=== PATIENT | male | born 1980 | race African-American/Black ===

== ENCOUNTER 2016-11-07 02:20 | Inpatient (IN) | payer SELFPAY ==
[~2016-11-07] VITALS: Ht 172.7 cm; Wt 63.9 kg
[~2016-11-07 02:20] MED LIST: CLINDAMYCIN HC150 MG PO; KEFLEX500 MG PO; MOTRIN400 MG PO; MOTRIN600 MG PO; MOTRIN800 MG PO; NOHOMEMEDS; RISPERIDONE2 MG PO; TRAMADOL HCL50 MG PO
[2016-11-07 03:06] LABS: EOSINOPHIL (%) 0.9 % (0-5); EOSINOPHIL COUNT 0.1 K/uL (0-0.3); HEMATOCRIT 37.5 % (38.0-50.0); IMMATURE GRANULOCYTE (%) 0.1 % (0.0-0.7); IMMATURE GRANULOCYTE COUNT 0.1 K/uL; LYMPHOCYTE COUNT 3.4 K/uL (1.0-2.8); MCH 30.5 PG (29.0-34.0); MCHC 34.1 G/DL (30.0-36.0); MCV 89.5 FL (86-99); MEAN PLAT.VOLUME 9.1 uM^3 (9.0-12.4); MONOCYTE (%) 8.3 % (3-12); MONOCYTE COUNT 0.7 K/uL (0-0.8); NEUTROPHIL (%) 47.8 % (45-76); NEUTROPHIL COUNT 3.8 K/uL (1.8-6.4); PLATELET COUNT 205 K/uL (156-360); RBC DIS.WIDTH-CV 13.8 % (11.8-14.6); RBC DIS.WIDTH-SD 44.2 % (39-53); RED BLOOD COUNT 4.19 M/uL (4.00-5.50); WHITE BLOOD COUNT 7.9 K/uL (4.1-10.2)
[2016-11-07 03:14] LABS: CHLORIDE 106 mEq/L (99-109); POTASSIUM 3.7 mEq/L (3.7-5.4); SODIUM 144 mEq/L (136-147)
[2016-11-07 03:16] LABS: GLUCOSE 143 mg/dL (70-99)
[2016-11-07 03:17] LABS: ANION GAP 11 MEQ/L (2-14)
[2016-11-07 03:19] LABS: SERUM ETHYL ALCOHOL < 10 mg/dL
[2016-11-07 03:20] LABS: GFR ESTIMATE (CALCULATED) > 59 mL/min/
[2016-11-07 03:21] LABS: UREA NITROGEN (BUN) 7 mg/dL (9-23)
[2016-11-07 08:19] LABS: AMPHETAMINE NEGATIVE (500 ng/mL); BARBITURATES NEGATIVE (200 ng/mL); BENZODIAZEPINES NEGATIVE (150 ng/mL); COCAINE NEGATIVE (150 ng/mL); INTERNAL CONTROLS VALID? YES; METHADONE NEGATIVE (200 ng/mL); METHAMPHETAMINE NEGATIVE (500 ng/mL); OPIATES (MORPHINE) NEGATIVE (100 ng/mL); OXYCODONE NEGATIVE (100 ng/mL); PHENCYCLIDINE NEGATIVE (25 ng/mL); PROPOXYPHENE NEGATIVE (300 ng/mL); THC CANNABINOIDS NEGATIVE (50 ng/mL); TRICYCLIC ANTIDEPRESSANTS NEGATIVE (300 ng/mL)
[2016-11-07 08:26] VITALS: BP 104/53
[2016-11-07 10:05] VITALS: BP 104/53
[2016-11-07 15:37] VITALS: BP 101/58
[2016-11-08 08:05] VITALS: BP 97/52
[2016-11-08 16:17] VITALS: BP 97/50
[2016-11-09 07:49] VITALS: BP 97/55
[2016-11-09 15:51] VITALS: BP 99/52
[2016-11-10 09:30] VITALS: BP 110/55
[2016-11-10 15:27] VITALS: BP 106/59
[2016-11-11 07:30] VITALS: BP 93/55
[2016-11-11 15:39] VITALS: BP 113/63
[2016-11-12 07:53] VITALS: BP 91/55
[2016-11-12 15:34] VITALS: BP 114/73
[2016-11-13 07:44] VITALS: BP 83/45
[2016-11-13 10:42] VITALS: BP 117/56
[2016-11-13 16:17] VITALS: BP 94/51
[2016-11-14 08:10] VITALS: BP 93/52
[2016-11-14 15:33] VITALS: BP 92/51
[2016-11-15 07:54] VITALS: BP 96/55
[2016-11-15 15:19] VITALS: BP 110/55
[2016-11-16 07:55] VITALS: BP 94/51
[2016-11-16 15:21] VITALS: BP 114/58
[2016-11-17 07:51] VITALS: BP 95/43
[2016-11-17] MEDS ORDERED: RISPERDAL2 MG PO (09:53)
== END 2016-11-17 15:51 | disposition home or self-care (01) | DRG 885 ==
LOC: EME 02:20 → EDOF 04:29 → 1WEST 04:29
PROVIDERS: Emergency Medicine
DX: F20.9 Schizophrenia, unspecified (principal); F12.10 Cannabis abuse, uncomplicated; F10.10 Alcohol abuse, uncomplicated
CPT/HCPCS: 80048; 85025; 90837; 97150 GO; 97165 GO; 99281; 99283; G0480